=== PATIENT | female | born 1985 | race Caucasian/White ===

== ENCOUNTER 2019-06-15 19:44 | Emergency (ER) | payer SELFPAY ==
[~2019-06-15] VITALS: Ht 162.6 cm; Wt 79.5 kg
[2019-06-15] MEDS ORDERED: FERR-89 PO (19:59)
[2019-06-15] MEDS ORDERED: KETOROLAC TROMETHAMINE 30 MG/ML VIAL IM ONE (20:45)
[2019-06-15] MEDS ORDERED: CYCLOBENZAPRINE HCL 10 MG TABLET PO ONE (20:45)
[2019-06-15 22:05] VITALS: BP 126/68
== END 2019-06-15 22:07 | disposition home or self-care (01) ==
LOC: EMS 19:46
DX: S13.4XXA Sprain of ligaments of cervical spine, initial encounter (principal); V89.2XXA Person injured in unspecified motor-vehicle accident, traffic, initial encounter; Y93.89 Activity, other specified; Y92.488 Other paved roadways as the place of occurrence of the external cause; Y99.8 Other external cause status
CPT/HCPCS: 96372; 99283; J1885

== ENCOUNTER 2022-06-25 00:33 | Emergency (ER) | payer OTHER ==
[~2022-06-25] VITALS: Ht 162.6 cm; Wt 79.1 kg
[~2022-06-25 00:33] MED LIST: FERR325T27 PO
[2022-06-25 00:35] VITALS: BP 104/66
[2022-06-25] MEDS ORDERED: PredniSONE 20 MG TABLET PO ONE (00:45)
[2022-06-25] MEDS ORDERED: DiphenhydrAMINE HCL 25 MG CAPSULE PO ONE (00:45)
[2022-06-25] MEDS ORDERED: DIPH25CA85 PO (00:48)
[2022-06-25] MEDS ORDERED: PRED-554 PO (00:48)
== END 2022-06-25 01:05 | disposition home or self-care (01) ==
LOC: EMS 00:33
DX: L50.0 Allergic urticaria (principal)
CPT/HCPCS: 99283; J7512

== ENCOUNTER 2022-06-25 18:35 | Emergency (ER) | payer OTHER ==
[~2022-06-25] VITALS: Ht 162.6 cm; Wt 86.5 kg
[~2022-06-25 18:35] MED LIST changes: +DIPH25CA85 PO; +PRED-554 PO
[2022-06-25] MEDS ORDERED: PredniSONE 20 MG TABLET PO ONE (20:15)
[2022-06-25] MEDS ORDERED: DiphenhydrAMINE HCL 25 MG CAPSULE PO ONE ×2 (20:15→21:30)
[2022-06-25] MEDS ORDERED: FAMOTIDINE 20 MG TABLET PO ONE (20:15)
[2022-06-25 22:34] VITALS: BP 121/76
== END 2022-06-25 22:46 | disposition home or self-care (01) ==
LOC: EMS 18:35
DX: L50.0 Allergic urticaria (principal)
CPT/HCPCS: 99284; J7512

== ENCOUNTER 2022-12-12 21:32 | Emergency (ER) | payer OTHER ==
[~2022-12-12] VITALS: Ht 162.6 cm; Wt 77.3 kg
[2022-12-12] MEDS ORDERED: DIPH25TA20 PO (21:36)
[2022-12-12] MEDS ORDERED: ALBU18HF12 PO (21:40)
[2022-12-12] MEDS ORDERED: SEMA0.5P SQ (21:40)
[2022-12-12 21:45] VITALS: BP 102/62
[2022-12-12] MEDS ORDERED: DiphenhydrAMINE HCL 50 MG/ML VIAL IM ONE (21:45)
== END 2022-12-12 23:08 | disposition home or self-care (01) ==
LOC: EMS 21:32
DX: L50.9 Urticaria, unspecified (principal)
CPT/HCPCS: 99283; 96372; J1200

== ENCOUNTER 2023-05-04 21:31 | Emergency (ER) | payer OTHER ==
[~2023-05-04] VITALS: Ht 157.5 cm; Wt 64.0 kg
[~2023-05-04 21:31] MED LIST changes: +ALBU18HF12 PO; -DIPH25CA85 PO; +DIPH25TA20 PO; -FERR325T27 PO; -PRED-554 PO; +SEMA0.5P SQ
[2023-05-04 21:58] VITALS: TEMP 98.3
[2023-05-04] MEDS ORDERED: IPRATROPIUM BROMIDE 0.5 MG/2.5 ML NEB SOLUTION NEB ONE (23:15)
[2023-05-04] MEDS ORDERED: DEXAMETHASONE SOD PHOS 4 MG/ML 5 ML VIAL IM ONE (23:15)
[2023-05-04] MEDS ORDERED: ALBUTEROL SULFATE 2.5 MG/0.5 ML NEB SOLUTION NEB ONE (23:15)
[2023-05-04] MEDS ORDERED: METH4TAB3 PO (23:16)
[2023-05-04 23:30] VITALS: PULSE 85; RESP 20; O2SAT 96
[2023-05-04 23:45] VITALS: PULSE 88; RESP 20; O2SAT 97
[2023-05-05 00:10] VITALS: BP 122/56; PULSE 87; RESP 16
== END 2023-05-05 00:15 | disposition home or self-care (01) ==
LOC: EMS 21:31
DX: J45.909 Unspecified asthma, uncomplicated (principal)
CPT/HCPCS: 99283; 94640; 96372; J1100